=== PATIENT | female | born 1950 | race Caucasian/White ===

== ENCOUNTER 2017-07-16 12:55 | Outpatient (CLI) | payer OTHER | END 2017-07-16 13:02 | disposition home or self-care (01) | LOC: MAMO-SONO 12:55 | DX: Z12.31 Encounter for screening mammogram for malignant neoplasm of breast (principal); Z87.898 Personal history of other specified conditions ==

== ENCOUNTER 2017-07-16 13:04 | Outpatient (CLI) | payer OTHER | END 2017-07-16 13:11 | disposition home or self-care (01) | LOC: RAD 13:04 | DX: I10 Essential (primary) hypertension (principal) ==

== ENCOUNTER 2017-07-22 08:51 | Outpatient (CLI) | payer OTHER | END 2017-07-22 09:03 | disposition home or self-care (01) | LOC: LAB 08:51 | DX: I10 Essential (primary) hypertension (principal); E78.2 Mixed hyperlipidemia; Z12.11 Encounter for screening for malignant neoplasm of colon ==

== ENCOUNTER 2017-07-23 11:07 | Outpatient (CLI) | payer OTHER | END 2017-07-23 11:10 | disposition home or self-care (01) | LOC: LAB 11:07 | DX: I10 Essential (primary) hypertension (principal); E78.2 Mixed hyperlipidemia; Z12.11 Encounter for screening for malignant neoplasm of colon ==

== ENCOUNTER 2018-11-28 16:52 | Inpatient (IN) | payer OTHER ==
[~2018-11-28] VITALS: Ht 162.6 cm; Wt 72.6 kg
[2018-11-28] MEDS ORDERED: RANITIDINE HCL300 M1 (17:19)
[2018-11-28] MEDS ORDERED: OXYBUTYNIN CHLO15 MG (17:19)
[2018-11-28] MEDS ORDERED: ATORVASTATIN CA40 MG (17:20)
[2018-11-28] MEDS ORDERED: ATACAND4 MG (17:20)
== END 2018-12-03 13:15 | disposition expired | DRG 871 ==
LOC: ER 16:52 → ICU-2 21:58 → ICU 12-02 02:26
PROVIDERS: ADMIT Internal Medicine
PROC: B246ZZZ Ultrasonography of Right and Left Heart (ICD-10-PCS; principal; 2018-11-28)
PROC: 4A033R1 Measurement of Arterial Saturation, Peripheral, Percutaneous Approach (ICD-10-PCS; 2018-11-28)
PROC: 3E0F7GC Introduction of Other Therapeutic Substance into Respiratory Tract, Via Natural or Artificial Opening (ICD-10-PCS; 2018-11-29)
PROC: BW40ZZZ Ultrasonography of Abdomen (ICD-10-PCS; 2018-11-29)
PROC: BT4JZZZ Ultrasonography of Kidneys and Bladder (ICD-10-PCS; 2018-11-29)
PROC: BW28ZZZ Computerized Tomography (CT Scan) of Head (ICD-10-PCS; 2018-11-29)
PROC: 02HV33Z Insertion of Infusion Device into Superior Vena Cava, Percutaneous Approach (ICD-10-PCS; 2018-11-30)
PROC: BW24ZZZ Computerized Tomography (CT Scan) of Chest and Abdomen (ICD-10-PCS; 2018-11-30)
DX: A41.89 Other specified sepsis (principal); R65.21 Severe sepsis with septic shock; I50.43 Acute on chronic combined systolic (congestive) and diastolic (congestive) heart failure; J18.1 Lobar pneumonia, unspecified organism; I46.9 Cardiac arrest, cause unspecified; J90 Pleural effusion, not elsewhere classified; I48.1 Persistent atrial fibrillation; N17.8 Other acute kidney failure; R18.8 Other ascites; N39.0 Urinary tract infection, site not specified; K80.10 Calculus of gallbladder with chronic cholecystitis without obstruction; B96.29 Other Escherichia coli [E. coli] as the cause of diseases classified elsewhere; E86.0 Dehydration; J44.9 Chronic obstructive pulmonary disease, unspecified; E78.00 Pure hypercholesterolemia, unspecified; D69.49 Other primary thrombocytopenia; E78.49 Other hyperlipidemia; R74.8 Abnormal levels of other serum enzymes; F17.210 Nicotine dependence, cigarettes, uncomplicated; Z60.2 Problems related to living alone; Z66 Do not resuscitate; I11.0 Hypertensive heart disease with heart failure; Z79.01 Long term (current) use of anticoagulants; Z99.81 Dependence on supplemental oxygen